=== PATIENT | female | born 1980 | race Caucasian/White ===

== ENCOUNTER 2018-02-21 18:37 | Emergency (ER) | payer OTHER ==
[2018-02-21 18:57] VITALS: Ht 167.6 cm
[2018-02-21 19:47] LABS: BASOPHIL % 0.3 % (0-2); PLATELET COUNT 254 x10^3mcL (130-400)
[2018-02-21 19:49] LABS: CALCIUM 8.8 mg/dL (8.5-10.1); CARBON DIOXIDE 25.9 mmol/L (21-32); CHLORIDE SERUM 104 mmol/L (98-107); CREATININE SERUM 0.7 mg/dL (0.6-1.0); GFR1 > 60 mL/min; GLUCOSE SERUM 96 mg/dL (74-106); POTASSIUM SERUM 3.3 mmol/L (3.5-5.1); SODIUM SERUM 138 mmol/L (136-145)
[2018-02-21 19:54] LABS: ALBUMIN 3.7 g/dL (3.4-5.0); ALKALINE PHOSPHATASE 54 U/L (46-116); ALT/SGPT 27 U/L (14-59); AST/SGOT 11 U/L (15-37); BILIRUBIN TOTAL 0.38 mg/dL (0.20-1.00); LIPASE 134 IU/L (73-393)
[2018-02-21 19:55] LABS: TOTAL PROTEIN, SERUM 8.4 g/dL (6.4-8.2)
[2018-02-21 19:58] LABS: microscopic required? YES; urine erythrocyte TRACE (NEGATIVE)
[2018-02-21 21:50] VITALS: BP 121/60
== END 2018-02-21 21:50 | disposition home or self-care (01) ==
LOC: ED 18:37
PROVIDERS: Emergency Medicine
DX: N39.0 Urinary tract infection, site not specified (principal); F41.9 Anxiety disorder, unspecified; E78.00 Pure hypercholesterolemia, unspecified; Z88.6 Allergy status to analgesic agent
CPT/HCPCS: 36415